=== PATIENT | male | born 1975 | race Native Hawaiian/Other Pacific Islander ===

== ENCOUNTER 2018-10-05 00:21 | Inpatient (IN) ==
[2018-10-05] MEDS ORDERED: NS 1,000 ML IV ONE ×2 (00:45→04:06)
[2018-10-05] MEDS ORDERED: ZOFRAN IV ONE (00:45)
[2018-10-05] MEDS ORDERED: MORPHINE IV ONE ×2 (00:46→03:31)
[2018-10-05] MEDS ORDERED: TYLENOL PO ONE (02:39)
[2018-10-05] MEDS ORDERED: MOTRIN PO ONE (02:39)
[2018-10-05 03:20] LABS: HEMATOCRIT 48.6 % (42.0-52.0); HEMOGLOBIN 16.4 g/dL (14.0-18.0); LYMPH% 5.8 % (20.5-51.1); MCH 27.5 PG (27-31); MCHC 33.7 g/dL (33-37); MCV 81.5 FL (81-99); MONO# 0.45 X1000 (0.11-0.59); MONO% 5.2 % (1.7-9.3); MPV 9.6 FL (7.4-10.4); NEUT# 7.63 X1000 (1.4-6.5); PLT 266 X1000 (130-400); RBC 5.96 XMIL (4.7-6.1); RDW 13.2 % (11.5-14.5); WBC 8.58 X1000 (4.8-10.8)
[2018-10-05 03:35] LABS: ALB/GLOB RATIO 1.2; CREATININE 1.4 mg/dL (0.7-1.2); PHOSPHORUS 3.4 mg/dL (2.7-4.5); POTASSIUM 4.4 mmol/L (3.5-5.1); TOTAL BILIRUBIN 0.83 mg/dL (0.20-1.00); TOTAL PROTEIN 9.2 g/dL (6.3-8.3)
[2018-10-05] MEDS: ZOSYN 3.375 GM in NS 50 ML IV SCH ×4 (03:50→21:02)
[2018-10-05] MEDS: MORPHINE IV PRN ×2 (05:11→07:20)
--- NOTE | 2018-10-05 06:59 | EKG Report ---
Test Performed on : 10/05/2018 00:34:33 AM Test Reason : ED. NO EKG ORDER FOR MUSE Blood Pressure : / mmHG Vent. Rate : 093 BPM Atrial Rate : 093 BPM P-R Int : 164 ms QRS Dur : 094 ms QT Int : 354 ms P-R-T Axes : 060 056 028 degrees QTc Int : 440 ms Sinus rhythm. with frequent premature ventricular complexes. Nonspecific ST abnormality Abnormal ECG When compared with ECG of 04-OCT-2018 21:58, (Unconfirmed) No significant change was found Unconfirmed Result
--- NOTE | 2018-10-05 07:28 | Diag Imaging Result Doc PS360 ---
EXAM: CT ABD/PELVIS W/IV CONT ONLY 10/05/2018 HISTORY: N/V SEVERE ABDOMINAL PAIN TECHNIQUE: This exam was performed using automated exposure control, adjustment of mA or kV according to patient size, and/or use of iterative reconstruction technique. COMMENT: There are patchy platelike and coarse opacities in both lung bases. There are no previous studies available for comparison. This is probably related to atelectasis. The liver is slightly hypodense suggesting fatty change. There may be small filling defects dependently in the gallbladder which may be stones. The spleen and adrenal glands are not enlarged. The pancreas is unremarkable in appearance. There is a fair amount of fluid in the stomach. There is fluid in the proximal small bowel without a definite transitional point. The kidneys are without evidence of hydronephrosis or mass. There is some gas present in the transverse colon. The aorta is not distended. There is no evidence of significant adenopathy. Pelvis: The appendix is distended and inflamed in appearance. There is an apparent fecalith at the base of the appendix. There is fluid around the cecum without a discrete abscess. There is fluid around multiple small bowel loops in the pelvis. There is some fluid in the rectovesical pouch measuring 19 Hounsfield units in density. This is probably pus. The urinary bladder is unremarkable. The regional skeleton appears to be intact. IMPRESSION: Acute appendicitis. Probable peritonitis and ileus. Bibasilar atelectasis. Electronically signed by Russ Verde 10/05/2018 7:26 AM
[2018-10-05] MEDS ORDERED: MORPHINE IV PRN (08:01)
--- NOTE | 2018-10-05 08:31 | HISTORY AND PHYSICAL ---
CHIEF COMPLAINT: Abdominal pain HISTORY OF PRESENT ILLNESS: This is a 43-year-old male who reports a 1 to 2 day history of abdominal pain beginning in his mid upper abdomen and radiating down to his lower right abdomen over the last 24 hours. It is severe, worsened with movement, relieved some with morphine and associated with nausea and vomiting and low-grade fever. PAST MEDICAL HISTORY: None. PAST SURGICAL HISTORY: None. HOME MEDICATIONS: None. ALLERGIES: No known drug allergies. SOCIAL HISTORY: Negative tobacco, alcohol or illicit drug use. He works in [employer] in and lives alone. FAMILY HISTORY: Reviewed and unremarkable. REVIEW OF SYSTEMS: Ten systems reviewed and negative except as noted above. PHYSICAL EXAMINATION: VITAL SIGNS: Temperature 99 degrees, pulse 129, respiratory rate 21, blood pressure 118/74, O2 saturation 92%. GENERAL: Well-developed, well-nourished male who appears ill. HEENT: Normocephalic, atraumatic. Extraocular muscles intact. Pupils equal, round, reactive to light. Sclerae anicteric. Moist mucous membranes. Hearing grossly normal. No oral lesions. NECK: Supple. No thyromegaly. CARDIOVASCULAR: Tachycardic and regular. RESPIRATORY: Bilateral equal breath sounds. No work of breathing. GASTROINTESTINAL: Somewhat firm, nondistended, diffusely tender, especially in the right lower quadrant. No obvious organomegaly, mass or hernias appreciated. No rebound or guarding. EXTREMITIES: No clubbing, cyanosis, or edema. SKIN: Warm and dry. No rash. MUSCULOSKELETAL: Moves all extremities equally and well. LABORATORY DATA: CBC and complete metabolic profile reviewed and notable for creatinine 1.4, serum lactate 2.4. IMAGING: Abdomen and pelvis CT scans were reviewed by me as well as the official report, and it shows a distended, inflamed appendix with a possible fecalith at the base and some fluid around the cecum without a discrete abscess. There is also some fluid in the proximal small bowel without definite transition point. ASSESSMENT AND PLAN: A 43-year-old male with acute appendicitis, possible intra-abdominal abscess. He has received 2 L of normal saline bolus and started on Zosyn. We will head to the operating room this morning for laparoscopic appendectomy. I discussed with him the possible need to convert to an open procedure, as well as possible complications of bleeding, postoperative infection, injury to surrounding organs such as the intestines, bladder or ureter, and other imponderables. He understands and agrees to proceed. cc: Paolo Lazo MD
[2018-10-05] MEDS: NS 1,000 ML IV SCH ×2 (08:54→21:03)
[2018-10-05] MEDS ORDERED: XYLOCAINE-MPF 2% ONE (09:52)
[2018-10-05] MEDS ORDERED: QUELICIN (DOSE) ONE (09:53)
[2018-10-05] MEDS ORDERED: DIPRIVAN 1% ONE (09:53)
[2018-10-05] MEDS ORDERED: SENSORCAINE 0.5%-EPI 1:200,000 ONE (10:43)
[2018-10-05] MEDS ORDERED: LR 1,000 ML ONE (10:43)
[2018-10-05] MEDS ORDERED: OFIRMEV 1000 MG/ISOTONIC SOLN 1,000 MG/100 ML BOTTLE ONE (11:00)
[2018-10-05] MEDS ORDERED: DECADRON ONE (11:01)
[2018-10-05] MEDS ORDERED: ZOFRAN ONE (11:01)
[2018-10-05] MEDS ORDERED: TORADOL ONE (11:01)
[2018-10-05] MEDS ORDERED: ZEMURON ONE ×2 (11:02→11:25)
[2018-10-05] MEDS ORDERED: NEOSPORIN OINTMENT PACKET ONE (11:05)
[2018-10-05] MEDS ORDERED: PHENERGAN ONE (11:14)
[2018-10-05] MEDS ORDERED: FENTANYL ONE (11:14)
[2018-10-05] MEDS ORDERED: VENTOLIN HFA ONE (11:29)
[2018-10-05] MEDS ORDERED: ROBINUL ONE (11:31)
[2018-10-05] MEDS ORDERED: NEOSTIGMINE ONE (11:31)
[2018-10-05] MEDS ORDERED: BREVIBLOC ONE (11:46)
[2018-10-05] MEDS ORDERED: VERSED ONE (12:13)
[2018-10-05 12:30] LABS: URINE SOURCE CATH
[2018-10-05 12:33] LABS: BILIRUBIN URINE NEGATIVE (NEGATIVE); BLOOD URINE NEGATIVE (NEGATIVE); COLOR YELLOW; GLUCOSE URINE NEGATIVE (NEGATIVE); KETONE URINE TRACE mg/dL (NEGATIVE); LEUKOCYTES URINE NEGATIVE (NEGATIVE); NITRITE URINE NEGATIVE (NEGATIVE); PH URINE 5.5; PROTEIN URINE TRACE mg/dL (NEGATIVE); SP GRAVITY URINE 1.041; TURBIDITY URINE CLEAR (CLEAR); UROBILINOGEN URINE NORMAL (NORMAL)
[2018-10-05 12:34] LABS: UR EPITHELIAL CELLS <10 /HPF (<10); URINE BACTERIA NEGATIVE /HPF; URINE RBC <10 /HPF (<10); URINE WBC <10 /HPF (<10)
--- NOTE | 2018-10-05 13:01 | OPERATIVE NOTE ---
PROCEDURE DATE: 10/05/2018 PREOPERATIVE DIAGNOSIS: Acute appendicitis. POSTOPERATIVE DIAGNOSIS: Acute appendicitis with intraabdominal abscess. SURGEON: Dr. Paolo Lazo. ANESTHESIA: General. PROCEDURE: Laparoscopic appendectomy with drainage of ventral intra-abdominal abscess. ESTIMATED BLOOD LOSS: 5 mL. COMPLICATIONS: None apparent. SPECIMENS: Appendix. FINDINGS: The appendix was acutely inflamed. There was a moderate amount of purulent fluid in the pelvis and in the pericolic gutters. Complications: There was a small 1 cm serosal tear on the cecum. TECHNIQUE: The patient was brought to the operating room and placed supine on the table. General anesthesia was induced. A Mendes catheter was placed. He was prepped and draped in the usual sterile fashion. A total of 0.25% Marcaine with epinephrine was used to anesthetize our incisions. A 12 mm incision port was placed above the umbilicus. The fascia was exposed and incised sharply. Entry into the peritoneal cavity was obtained under direct vision with the Optiview device. Pneumoperitoneum was established. The camera was inserted. There was no evidence of injury to underlying structures. Three 5 mm incision ports were placed under direct vision; in the left lower quadrant, the right upper quadrant and lower suprapubic midline. He was placed in Trendelenburg and left rotation. I found the inflamed appendix alongside a loop of small bowel in the right pelvis. The cecum was quite floppy and full of air. It was somewhat difficult to get good visualization, so I began to incise the lateral peritoneal attachments of the cecum to better mobilize it. This did help. There was a small 1 cm serosal tear on the cecum. However, it did not appear to need repair. There was no evidence of any leakage from it. I eventually was able to visualize the base of the appendix which appeared normal. I dissected underneath the base of the appendix through the mesentery with a [place] forceps and then transected the base with an Endo-KELY stapler. I then divided the appendiceal mesentery with a LigaSure device. The appendix was placed in an EndoCatch bag. I then copiously irrigated out the pelvis, both pericolic gutters, and up above the spleen and liver. We suctioned this out. There did not appear to be any grossly purulent fluid left. I brought the appendix and bag out through the umbilical port site. We desufflated the abdomen and removed our ports. I closed the umbilical port site fascia with a [id number] 0 Vicryl. The skin was closed with 4-0 subcuticular Monocryl and Steri-Strips. There were no apparent complications. He was awakened in stable condition and transferred to the recovery room. cc: Paolo Lazo MD
[2018-10-05] MEDS: PERIDEX MT SCH (21:03)
[2018-10-06] MEDS: ZOSYN 3.375 GM in NS 50 ML IV SCH ×5 (02:22→21:40)
[2018-10-06] MEDS: NS 1,000 ML IV SCH ×2 (03:19→15:17)
[2018-10-06 05:59] LABS: HEMATOCRIT 37.5 % (42.0-52.0); HEMOGLOBIN 12.4 g/dL (14.0-18.0); IMM GRAN# 0.05 X1000 (0.0-0.04); IMM GRAN% 0.3 % (0.0-0.5); LYMPH# 0.89 X1000 (1.2-3.4); LYMPH% 5.7 % (20.5-51.1); MCH 27.6 PG (27-31); MCHC 33.1 g/dL (33-37); MCV 83.3 FL (81-99); MONO# 0.87 X1000 (0.11-0.59); MONO% 5.6 % (1.7-9.3); MPV 9.3 FL (7.4-10.4); NEUT# 13.67 X1000 (1.4-6.5); NEUT% 88.4 % (42.2-75.2); PLT 203 X1000 (130-400); RDW 13.2 % (11.5-14.5); WBC 15.48 X1000 (4.8-10.8)
[2018-10-06 06:27] LABS: CALCIUM 8.3 mg/dL (8.8-10.2); CREATININE 1.3 mg/dL (0.7-1.2); POTASSIUM 3.7 mmol/L (3.5-5.1)
[2018-10-06] MEDS: PERIDEX MT SCH ×2 (08:33→21:39)
--- NOTE | 2018-10-06 10:31 | PROGRESS NOTE ---
DATE: 10/06/2018 SUBJECTIVE: Mr. Encarnacion is a patient of Dr. Lazo. He underwent yesterday a laparoscopic appendectomy and drainage of intra-abdominal abscess. No drains were left at the time of surgery. His abdomen is distended today. He has been given liquids. His heart rate is 102, blood pressure 112/72, O2 saturation is 90% and his temperature is 100.6 degrees. He is on IV Zosyn. PLAN: We will continue IV medications and a clear liquid diet for now. Will increase his activity. cc: MD Paolo Cote MD
[2018-10-06] MEDS: NORCO-10 PO PRN ×2 (12:22→21:48)
--- NOTE | 2018-10-06 15:56 | PROVIDER DOCUMENTATION ---
This chart was entered by Debra Carbajal Scribe, acting as scribe for Ricardo Nolan MD. HPI-Abdominal Pain/GI Problem <JefeHansel Mary - Last Filed: 10/05/18 03:38> - General Source: patient - History of Present Illness-ABD Nature of Presenting Problems: 43 yom presents to er w/cc pt was seen in er yesterday evening. pt having worse abd pain and vomiting. pt has not had bm in 2 days. pt states sym got worse when d/c. pt denies fever, diarrhea, and cp. Abdominal Pain Onset Location: reports: LUQ, epigastric Pain Radiation: reports: no radiation Quality of Pain: reports: aching Severity in ED: reports: mild <Ricardo Nolan - Last Filed: 10/06/18 15:56> - General Chief Complaint: Return/Recheck Stated Complaint: EPIGASTRIC PAIN WORSENING Time Seen by Provider: 10/05/18 00:44 Allergies/Adverse Reactions: Patient Allergies Allergy/AdvReac Type Severity Reaction Status Date / Time No Known Allergies Allergy Verified 10/05/18 03:23 Home Medications: Home Medication List Medication Instructions Recorded Confirmed Last Taken Type Docusate Sodium [Colace] 100 mg PO BID PRN 10 Days #20 cap 10/04/18 10/05/18 Unknown Rx Review of Systems - Adult - REVIEW OF SYSTEMS - ADULT Constitutional: reports: no symptoms reported. denies: fever Eyes: reports: no symptoms reported Ears, Nose, Mouth & Throat: reports: no symptoms reported Cardiovascular: reports: no symptoms reported Respiratory: reports: no symptoms reported Gastrointestinal: reports: see HPI, abdominal pain (epigastric, luq), vomiting. denies: difficulty swallowing, frequent heartburn, rectal bleeding Genitourinary: reports: no symptoms reported Musculoskeletal: reports: no symptoms reported Integumentary: reports: no symptoms reported Neurological: reports: no symptoms reported Psychiatric: reports: no symptoms reported Endocrine: reports: no symptoms reported Hematologic/Lymphatic: reports: no symptoms reported Allergic/Immunologic: reports: no symptoms reported All Other Systems: Reviewed and Negative <Ricardo Nolan - Last Filed: 10/06/18 15:56> Past History - Adult - PAST MEDICAL HISTORY-ADULT Review of Records: reports: Old Records Reviewed, Nursing Assessment Review, Medications Reviewed, Social history reviewed & non-contributory. Major Childhood Illnesses: reports: denies history Cardiovascular: reports: denies history Respiratory: reports: denies history Gastrointestinal: reports: denies history Obstetrical/Gynecological: reports: denies history Genitourinary: reports: denies history Musculoskeletal: reports: denies history Neurological: reports: denies history Endocrine/Immune: reports: denies history Other Conditions: reports: denies history - PRIOR SURGERIES/PROCEDURES Surgical/Procedure History: reports: none - IMMUNIZATION STATUS Childhood Immunizations: See Nurse Assessment Flu Vaccine: See Nurse Assessment - FAMILY HISTORY Family History: reviewed, not pertinent - SOCIAL HISTORY Smoking: non-smoker Substance Use: none/never <Ricardo Nolan - Last Filed: 10/06/18 15:56> Physical Exam-General - PHYSICAL EXAM-ADULT Initial Vital Signs Reviewed: Yes - CONSTITUTIONAL General Appearance: mild distress - EYES Eyes: PERRL/EOMI - HEAD, EARS, NOSE, MOUTH & THROAT HENMT: normocephalic/atraumatic, moist mucous membranes, normal ENT inspection - NECK Neck: non-tender, full range of motion, supple - RESPIRATORY Respiratory: chest non-tender, lungs clear, normal breath sounds - CARDIOVASCULAR Cardiovascular: normal peripheral pulses, regular rate, rhythm - GASTROINTESTINAL (ABDOMEN) Abdominal Exam: abnormal bowel sounds (descreased), distended, tenderness (luq epigastric). negative: normal bowel sounds, non tender, soft, abdominal bruit, rigid, rebound, mass - LYMPHATIC Lymphatic: no adenopathy - MUSCULOSKELETAL Back Exam: normal inspection, no CVA tenderness, no vertebral tenderness Extremity: normal range of motion, non-tender, normal inspection Peripheral Pulses: radial (R): 2+, radial (L): 2+ - SKIN Integumentary: normal color, normal turgor, warm/dry - NEUROLOGIC Neurologic: comparator operator II-XII nml as tested, grossly normal, no motor/sensory deficits - PSYCHIATRIC Psych/Mental Status: normal mood/affect, normal thought content, normal thought process, oriented x 3 <Ricardo Nolan - Last Filed: 10/06/18 15:56> Progress - PLAN OF CARE/RESULTS Progress/Plan/Lab Results: Vital Signs - 8 hr 10/05/18 00:39 Temperature 98.7 F Pulse Rate 88 Respiratory Rate 14 O2 Sat by Pulse Oximetry 100 Laboratory Results - last 24 hr 10/05/18 10/05/18 10/05/18 02:45 02:45 02:45 WBC RBC Hgb Hct MCV MCH MCHC RDW Std Deviation Plt Count MPV Immature Gran % (Auto) Neut % (Auto) Lymph % (Auto) Taliaferro % (Auto) Eos % (Auto) Baso % (Auto) Immature Gran # (Auto) Neut # (Auto) Lymph # (Auto) Taliaferro # (Auto) Eos # (Auto) Baso # (Auto) Sodium 140 Potassium 4.4 Chloride 100 Carbon Dioxide 23 L Anion Gap 17 BUN 13 Creatinine 1.4 H Estimated GFR/1.73 m2 55 BUN/Creatinine Ratio 9 Glucose 118 H Calculated Osmolality 281 Calcium 9.0 Phosphorus 3.4 Magnesium 1.6 Total Bilirubin 0.83 AST 26 ALT 37 Alkaline Phosphatase 86 Total Protein 9.2 H Albumin 5.0 Globulin 4.2 Albumin/Globulin Ratio 1.2 Amylase 33 Lipase 15 Plasma Lactate 2.4 H 10/05/18 02:45 WBC 8.58 RBC 5.96 Hgb 16.4 Hct 48.6 MCV 81.5 MCH 27.5 MCHC 33.7 RDW Std Deviation 13.2 Plt Count 266 MPV 9.6 Immature Gran % (Auto) 0.0 Neut % (Auto) 89.0 H Lymph % (Auto) 5.8 L Taliaferro % (Auto) 5.2 Eos % (Auto) 0.0 Baso % (Auto) 0.0 Immature Gran # (Auto) 0.00 Neut # (Auto) 7.63 H Lymph # (Auto) 0.50 L Taliaferro # (Auto) 0.45 Eos # (Auto) 0.00 Baso # (Auto) 0.00 Sodium Potassium Chloride Carbon Dioxide Anion Gap BUN Creatinine Estimated GFR/1.73 m2 BUN/Creatinine Ratio Glucose Calculated Osmolality Calcium Phosphorus Magnesium Total Bilirubin AST ALT Alkaline Phosphatase Total Protein Albumin Globulin Albumin/Globulin Ratio Amylase Lipase Plasma Lactate Orders Category Date Time Status Admit - [facility] Routine AdmDCTranf 10/05/18 03:[address] ABD/PELVIS W/IV CONT ONLY [CT] Stat Exams 10/05/18 00:46 Taken AMYLASE [CHEM] Stat Lab 10/05/18 02:45 Received CBC WITH ELECTRONIC DIFF [HEME] Stat Lab 10/05/18 02:45 Completed COMPREHENSIVE METABOLIC PANEL [CHEM] Stat Lab 10/05/18 02:45 Received LACTATE, PLASMA [CHEM] Stat Lab 10/05/18 02:45 Completed LIPASE [CHEM] Stat Lab 10/05/18 02:45 Received MAGNESIUM [CHEM] Stat Lab 10/05/18 02:45 Completed PHOSPHORUS [CHEM] Stat Lab 10/05/18 02:45 Received 0.9% Sodium Chloride Inj [Ns] 1,000 ml Med 10/05/18 00:45 Discontinued IV 999 mls/hr Acetaminophen [Tylenol] Med 10/05/18 02:39 Discontinued 650 mg PO NOW ONE Ibuprofen [Motrin] Med 10/05/18 02:39 Discontinued 200 mg PO NOW ONE Morphine Med 10/05/18 03:31 Discontinued 2 mg IV NOW ONE Morphine Med 10/05/18 03:37 Ordered 2 mg IV Q2H PRN PRN Morphine Med 10/05/18 00:46 Discontinued 4 mg IV NOW ONE Ondansetron [Zofran] Med 10/05/18 00:45 Discontinued 4 mg IV NOW ONE Ondansetron [Zofran] Med 10/05/18 03:36 Ordered 4 mg IV Q6H PRN PRN Piperacillin/Tazobactam [Zosyn] 3.375 gm Med 10/05/18 03:45 Ordered 0.9% Sodium Chloride Inj [Ns] 50 ml IV Q6HR Transfer/Admit Order [TRANSFER] Routine Transfer 10/05/18 03:37 Ordered Result Diagrams: 10/05/18 02:45 10/05/18 02:45 - CT/MRI 1 CT Study: Abdomen Impression: Abnormal, See EMR Report (acute appendicitis) - CONSULTS/PCP/HOSPITALIST Notification #1 *Consult/PCP/Hospitalist*: Dr Lazo who asked for pt to be admitted and will see pt in few hrs. Time Discussed: 03:39 Consult Disposition: Admit <Hansel Mayberry - Last Filed: 10/05/18 03:38> - PLAN OF CARE/RESULTS Progress/Plan/Lab Results: Vital Signs - 8 hr 10/05/18 00:39 Temperature 98.7 F Pulse Rate 88 Respiratory Rate 14 O2 Sat by Pulse Oximetry 100 Orders Category Date Time Status CT ABD/PELVIS W/IV CONT ONLY [CT] Stat Exams 10/05/18 00:46 Ordered AMYLASE [CHEM] Stat Lab 10/05/18 02:38 Uncollected CBC WITH ELECTRONIC DIFF [HEME] Stat Lab 10/05/18 02:38 Uncollected COMPREHENSIVE METABOLIC PANEL [CHEM] Stat Lab 10/05/18 02:38 Uncollected LACTATE, PLASMA [CHEM] Stat Lab 10/05/18 00:45 Uncollected LIPASE [CHEM] Stat Lab 10/05/18 02:38 Uncollected MAGNESIUM [CHEM] Stat Lab 10/05/18 00:45 Ordered PHOSPHORUS [CHEM] Stat Lab 10/05/18 02:38 Uncollected 0.9% Sodium Chloride Inj [Ns] 1,000 ml Med 10/05/18 00:45 Discontinued IV 999 mls/hr Acetaminophen [Tylenol] Med 10/05/18 02:39 Discontinued 650 mg PO NOW ONE Ibuprofen [Motrin] Med 10/05/18 02:39 Discontinued 200 mg PO NOW ONE Morphine Med 10/05/18 00:46 Discontinued 4 mg IV NOW ONE Ondansetron [Zofran] Med 10/05/18 00:45 Discontinued 4 mg IV NOW ONE Result Diagrams: 10/06/18 05:22 10/06/18 05:22 - CHANGE OF SHIFT REPORT (ED Provider) 1 Report Given and Care Transferred to:: Dr. Mayberry Time of Transfer: 03:30 Items Pending: Labs, CT/MRI Results, Other (CONTINUE PATIENT CARE) <Ricardo Nolan - Last Filed: 10/06/18 15:56> Departure - Departure Date of Disposition Decision: 10/05/18 Time of Disposition Decision: 03:39 Certified Medical Emergency: Emergent - Critical Care Note This patient required my direct & personal management of CC.: No <Hansel Mayberry - Last Filed: 10/05/18 03:38> <Ricardo Nolan - Last Filed: 10/06/18 15:56> - Departure DIAGNOSIS: Appendicitis Disposition: ADMITTED INPATIENT 09 Condition: Fair Attestation - Physician/ SANAZ Attestation Patient care was provided by Advanced Practice Provider:: Yes Advanced Practice Provider documentation review:: The Mid-level provider documentation, treatment plan and medical decision making was reviewed by the ph ysician who agrees with all treatment and medical decision making by the MLP. The physician spent face to face time with patient:: Yes Advanced Practice Provider documentation review:: Supervising physician onsite and consulted in the evaluation and care of this patient. The physician did have a face to face encounter with the patient. <Hansel Mayberry - Last Filed: 10/05/18 03:38> - Physician/ SANAZ Attestation Patient care was provided by Advanced Practice Provider:: No The physician spent face to face time with patient:: Yes Advanced Practice Provider documentation review:: Supervising physician onsite and consulted in the evaluation and care of this patient. The physician did have a face to face encounter with the patient. <Ricardo Nolan - Last Filed: 10/06/18 15:56> This chart was documented by the indicated scribe, (Debra Carbajal Scribe) and accurately reflects the services I performed and decisions made by me, Ricardo Nolan MD, as attested by the provider's signature.
[2018-10-06] MEDS: TORADOL IV PRN ×2 (17:42→21:48)
--- NOTE | 2018-10-06 18:40 | Diag Imaging Result Doc PS360 ---
ABDOMEN FLAT/UPRIGHT - 10/06/2018 INDICATION: abdominal/ shortness of breath COMPARISON: 10/04/2018 FINDINGS: There are some gas distended loops of small bowel in the central abdomen similar to prior. These measure up to about 4 cm. There is gas throughout the colon and rectum. No free air. IMPRESSION: Abnormally dilated small bowel loops consistent with ileus. Electronically signed by Jarrell Hawkins 10/06/2018 6:37 PM
--- NOTE | 2018-10-06 20:41 | PROGRESS NOTE ---
DATE: 10/06/2018 The nurses called me this evening about Mr. Encarnacion. His abdomen remains distended. He was complaining of some pain right upper quadrant with breathing, and they felt his O2 saturation was low and they wanted to get an x-ray. On exam, Mr. Encarnacion appears to be resting comfortably. He did move around the halls today. He states that he has passed some flatus and his abdomen does not feel as distended as it was this morning. The film that was obtained was an abdominal film and it suggests an ileus with air in both the small bowel and the colon. I have reviewed the operative note per Dr. Lazo and this was a laparoscopic appendectomy. There was a tear of the serosa of the cecum and there may have been some free purulence intraabdominally. There was no drain left at the time of surgery. He remains on IV antibiotics. I do feel that he is clinically improved as far as his abdominal distention from this morning. His heart rate is 75, blood pressure 120/74, O2 saturation is now 94%. He has a low-grade temperature of 99.7. He is on IV Zosyn. cc: MD Paolo Cote MD
[2018-10-07] MEDS: ZOSYN 3.375 GM in NS 50 ML IV SCH ×4 (03:19→22:11)
[2018-10-07] MEDS: NS 1,000 ML IV SCH ×3 (03:19→14:34)
[2018-10-07 06:05] LABS: EOS% 0.2 % (0.0-10.0); LYMPH# 1.01 X1000 (1.2-3.4); RDW 13.5 % (11.5-14.5)
[2018-10-07 06:31] LABS: AGAP 12; BUN 10 mg/dL (8-22); CALCIUM 8.1 mg/dL (8.8-10.2); CHLORIDE 107 mmol/L (98-107); COSMO 281; CREATININE 1.2 mg/dL (0.7-1.2); ESTIMATED GFR > 60; GLUCOSE 103 mg/dL (70-104); POTASSIUM 3.5 mmol/L (3.5-5.1); SODIUM 141 mmol/L (136-145); TCO2 22 mmol/L (25-35)
[2018-10-07 06:54] LABS: BASO# 0.01 X1000 (0.0-0.2); BASO% 0.1 % (0.0-0.8); EOS# 0.03 X1000 (0.0-0.7); HEMATOCRIT 35.8 % (42.0-52.0); HEMOGLOBIN 11.9 g/dL (14.0-18.0); MCH 28.1 PG (27-31); MCHC 33.2 g/dL (33-37); MCV 84.4 FL (81-99); MONO# 0.64 X1000 (0.11-0.59); MPV 9.6 FL (7.4-10.4); NEUT% 86.7 % (42.2-75.2); PLT 195 X1000 (130-400); RBC 4.24 XMIL (4.7-6.1); WBC 12.69 X1000 (4.8-10.8)
[2018-10-07] MEDS: NORCO-10 PO PRN ×3 (07:40→22:24)
[2018-10-07] MEDS: TORADOL IV PRN (07:41)
[2018-10-07] MEDS: OFIRMEV 1000 MG/ISOTONIC SOLN 1,000 MG/100 ML BOTTLE IV SCH ×3 (09:09→22:11)
[2018-10-07] MEDS: PERIDEX MT SCH ×2 (09:10→22:11)
--- NOTE | 2018-10-07 17:00 | PROGRESS NOTE ---
DATE: 10/07/2018 Mr. Encarnacion is status post laparoscopic appendectomy. He has had problems with a postoperative ileus and abdominal distention. I had been called by the nurses about right upper quadrant pain yesterday evening, and even a decreased saturation. This morning I was called about a fever. We have placed him on IV Tylenol. He has been good about ambulating in the halls, and actually when I saw him about mid morning, his abdominal distention had improved. His heart rate is 70, blood pressure 133/99, O2 saturation 94%, his temperature is 99 degrees. He is voiding without difficulty. His white blood cell count went from 15 to 12, hematocrit is 36%. Electrolytes were within normal limits. I will check labs again tomorrow and a flat and upright abdominal film. Cultures suggest that he had E coli. It is resistant to levofloxacin, Unasyn, and ampicillin. It does appear to be sensitive to Zosyn. cc: MD Paolo Cote MD
[2018-10-08] MEDS: NS 1,000 ML IV SCH ×4 (02:55→21:46)
[2018-10-08] MEDS: OFIRMEV 1000 MG/ISOTONIC SOLN 1,000 MG/100 ML BOTTLE IV SCH ×3 (03:23→14:31)
[2018-10-08] MEDS: ZOSYN 3.375 GM in NS 50 ML IV SCH ×4 (03:32→21:45)
[2018-10-08 06:33] LABS: BASO# 0.02 X1000 (0.0-0.2); BASO% 0.2 % (0.0-0.8); EOS% 1.8 % (0.0-10.0); HEMATOCRIT 36.4 % (42.0-52.0); HEMOGLOBIN 12.1 g/dL (14.0-18.0); LYMPH# 1.16 X1000 (1.2-3.4); LYMPH% 10.2 % (20.5-51.1); MCH 27.8 PG (27-31); MCHC 33.2 g/dL (33-37); MCV 83.5 FL (81-99); MONO# 0.73 X1000 (0.11-0.59); MONO% 6.4 % (1.7-9.3); MPV 9.5 FL (7.4-10.4); NEUT# 9.31 X1000 (1.4-6.5); NEUT% 81.4 % (42.2-75.2); PLT 217 X1000 (130-400); RBC 4.36 XMIL (4.7-6.1); RDW 13.2 % (11.5-14.5); WBC 11.42 X1000 (4.8-10.8)
[2018-10-08 07:13] LABS: AGAP 12; BUN 5 mg/dL (8-22); CHLORIDE 105 mmol/L (98-107); COSMO 276; CREATININE 0.9 mg/dL (0.7-1.2); ESTIMATED GFR > 60; GLUCOSE 94 mg/dL (70-104); POTASSIUM 3.2 mmol/L (3.5-5.1); SODIUM 140 mmol/L (136-145); TCO2 23 mmol/L (25-35)
--- NOTE | 2018-10-08 08:45 | Diag Imaging Result Doc PS360 ---
FLAT/UPRIGHT ABD/1 VIEW CHEST - 10/08/2018 INDICATION: ileus TECHNIQUE: COMPARISON: None FINDINGS: There is moderate pulmonary vascular congestion. There is a trace left pleural effusion. There is right perihilar infiltrate or atelectasis. The gas distended small bowel loops have resolved. The bowel gas pattern is normal. IMPRESSION: 1. Normalization of the bowel gas pattern. 2. Pulmonary vascular congestion. Small pleural effusion on the left. Faint infiltrate or atelectasis at the right hilum. Electronically signed by Jarrell Hawkins 10/08/2018 8:42 AM
[2018-10-08] MEDS: PERIDEX MT SCH ×2 (09:20→21:45)
[2018-10-08] MEDS: NORCO-10 PO PRN (21:45)
[2018-10-08] MEDS: ZOFRAN IV PRN (22:50)
[2018-10-09] MEDS: OFIRMEV 1000 MG/ISOTONIC SOLN 1,000 MG/100 ML BOTTLE IV SCH ×5 (01:58→22:30)
[2018-10-09] MEDS: ZOSYN 3.375 GM in NS 50 ML IV SCH ×4 (03:19→22:31)
[2018-10-09] MEDS ORDERED: ZOSYN ONE (03:22)
[2018-10-09] MEDS: NORCO-10 PO PRN (06:53)
[2018-10-09] MEDS: TORADOL IV PRN (06:54)
[2018-10-09] MEDS: NS 1,000 ML IV SCH (10:18)
[2018-10-09] MEDS: PERIDEX MT SCH ×2 (10:18→22:29)
[2018-10-09] MEDS: ZOFRAN IV PRN ×2 (17:24→23:29)
[2018-10-10] MEDS: OFIRMEV 1000 MG/ISOTONIC SOLN 1,000 MG/100 ML BOTTLE IV SCH ×4 (03:36→22:01)
[2018-10-10] MEDS: ZOSYN 3.375 GM in NS 50 ML IV SCH ×4 (03:36→22:01)
[2018-10-10] MEDS: NS 1,000 ML IV SCH ×3 (03:41→23:03)
[2018-10-10 07:06] LABS: BASO# 0.02 X1000 (0.0-0.2); BASO% 0.2 % (0.0-0.8); EOS# 0.15 X1000 (0.0-0.7); EOS% 1.5 % (0.0-10.0); HEMATOCRIT 36.1 % (42.0-52.0); HEMOGLOBIN 12.2 g/dL (14.0-18.0); LYMPH% 13.2 % (20.5-51.1); MCH 27.8 PG (27-31); MCHC 33.8 g/dL (33-37); MCV 82.2 FL (81-99); MONO# 0.74 X1000 (0.11-0.59); MONO% 7.5 % (1.7-9.3); MPV 9.2 FL (7.4-10.4); NEUT# 7.64 X1000 (1.4-6.5); NEUT% 77.6 % (42.2-75.2); PLT 280 X1000 (130-400); RBC 4.39 XMIL (4.7-6.1); WBC 9.85 X1000 (4.8-10.8)
[2018-10-10 07:21] LABS: AGAP 14; BUN 7 mg/dL (8-22); CALCIUM 8.1 mg/dL (8.8-10.2); CHLORIDE 101 mmol/L (98-107); COSMO 270; CREATININE 0.9 mg/dL (0.7-1.2); ESTIMATED GFR > 60; GLUCOSE 91 mg/dL (70-104); MAGNESIUM 1.6 mg/dL (1.5-2.7); SODIUM 136 mmol/L (136-145); TCO2 21 mmol/L (25-35)
[2018-10-10 07:25] LABS: POTASSIUM 3.1 mmol/L (3.5-5.1)
[2018-10-10] MEDS: PERIDEX MT SCH ×2 (08:30→22:01)
[2018-10-10] MEDS ORDERED: MAGNESIUM SULFATE 4 GM/S.W.I. 4 GM/100 ML IVPB IV ONE (12:56)
[2018-10-10] MEDS ORDERED: BENADRYL PO PRN (16:40)
[2018-10-10] MEDS: POTASSIUM CHLORIDE 40 MEQ in NS 250 ML IV SCH ×2 (17:22→22:07)
--- NOTE | 2018-10-10 19:05 | GENERAL SURGERY PROGRESS NOTE ---
DATE: 10/10/2018 HISTORY OF PRESENT ILLNESS: This is a 43-year-old gentleman, patient of Dr. Lazo's, who is status post appendectomy. He has had an ileus. I have seen the patient on the , the , and the , but for some reason, my progress notes have not been transcribed. He has had an ileus and some distention associated with this. He has been ambulating. His pain has been okay. No fevers. Today, he has had a good bowel movement. He is ambulating. He is much less distended. He is tolerating p.o. with no vomiting. OBJECTIVE: No fevers, pulse 81, blood pressure 136/80. I reviewed his labs. White count is normal. It has been downtrending over the last couple days. Creatinine is normal. His potassium and magnesium are low. ASSESSMENT AND PLAN: A 43-year-old gentleman who is status post laparoscopic appendectomy by Dr. Lazo. Clinically, his ileus has resolved. He is on Zosyn. We will transition to oral tomorrow and give him a soft diet. He is on Zofran. I have repleted his potassium and his magnesium. I also ordered him Lovenox today. We will plan for him to go home tomorrow. cc: MD Paolo Velez MD
[2018-10-11] MEDS: POTASSIUM CHLORIDE 40 MEQ in NS 250 ML IV SCH (00:50)
[2018-10-11] MEDS: ZOSYN 3.375 GM in NS 50 ML IV SCH ×2 (03:59→11:01)
[2018-10-11] MEDS: OFIRMEV 1000 MG/ISOTONIC SOLN 1,000 MG/100 ML BOTTLE IV SCH ×3 (03:59→16:16)
[2018-10-11] MEDS: ZOFRAN IV PRN (08:25)
[2018-10-11] MEDS: PERIDEX MT SCH (08:48)
[2018-10-11 11:30] VITALS: BP 132/86
[2018-10-11] MEDS: NS 1,000 ML IV SCH (16:16)
--- NOTE | 2018-10-11 22:12 | DISCHARGE SUMMARY ---
ADMISSION DATE: 10/05/2018 DISCHARGE DATE: 10/11/2018 He tolerated a soft diet. No fevers. No tachycardia. Blood pressure has been normal. Abdomen is soft. Incisions are intact. ASSESSMENT AND PLAN: A 43-year-old gentleman with purulent perforated appendicitis status post appendectomy. His white count is normalized. No fevers. Bowel function returned normal. He is tolerating diet well and can go home. Will see him in the office next week. I have given a prescription for Augmentin for 7 days. Otherwise, he will call with any worsening symptoms, fevers, nausea or vomiting. cc: MD Paolo Velez MD
== END 2018-10-11 17:21 | disposition home or self-care (01) | DRG 339 ==
LOC: ED 00:21 → 4N 04:19
PROVIDERS: ADMIT Surgery; ATTEND Surgery
CPT/HCPCS: 74019; 74020; 74022; 74177; 80048; 80053; 81001; 82150; 83605; 83690; 83735; 84100; 85025; 86850; 86900; 86901; 87040; 87070; 87075; 87076; 87077; 87186; 88304; 93005; 94761; 94799; 96361; 96365; 96375; 99285; A9270; J0131; J0330; J1100; J1885; J2250; J2270; J2405; J2543; J2550; J3010; J3475; J3480; J7030; J7050; J7120; Q9967